=== PATIENT | male | born 1995 | race African-American/Black ===

== ENCOUNTER 2021-01-15 08:52 | Emergency (ER) | payer SELFPAY ==
[2021-01-15 09:02] VITALS: BP 146/86; PULSE 55; RESP 16; TEMP 36.6; O2SAT 100
--- NOTE | 2021-01-15 09:31 | ED.EAR ---
HPI - Ear Problem General Chief complaint: Ear Stated complaint: fb in left ear Time Seen by Provider: 01/15/21 09:20 Source: patient and RN notes reviewed Mode of arrival: ambulatory Limitations: no limitations History of Present Illness HPI Narrative: Patient presents today stating he has a tip of a Q-tip in his left ear for the past hour. Denies pain, but states he is unable to hear from the left ear. Denies blood or discharge from the left ear. MD Complaint: decreased hearing and foreign body Related Data Allergies Allergy/AdvReac Type Severity Reaction Status Date / Time No Known Allergies Allergy Verified 01/15/21 09:01 Review of Systems Review of Systems: Narrative: CONSTITUTIONAL: Denies body aches, fever, chills, or sweats. EYES: Denies visual changes, redness, or discharge. ENT: Denies rhinorrhea, congestion, sore throat, or otalgia.+ Foreign body in left ear, decreased hearing CARDIOVASCULAR: Denies chest pain, palpitations, or edema. RESPIRATORY: Denies cough or dyspnea. GASTROINTESTINAL: Denies abdominal pain, nausea, vomiting, or diarrhea. GENITOURINARY: Denies dysuria or hematuria. SKIN: Denies rash, itching, or wounds. MUSCULOSKELETAL: Denies back pain, joint pain, or myalgia. NEUROLOGIC: Denies headache, numbness, tingling, or weakness. PSYCH: Denies depression or anxiety. PMFSH Comments At time of signature, I have reviewed and agree with nursing past medical, surgical, social and family history unless otherwise noted. Please see nursing chart for further information. There is no relevant family history pertinent to the presenting complaint Exam Narrative: Exam Narrative: GENERAL: Well-appearing, well-nourished, and in no acute distress. HEAD: Normocephalic, atraumatic. EYES: EOMI. No redness or drainage. Conjunctivae normal. ENT: Mucous membranes pink and moist. Right TM normal. Left TM is severely ruptured with small amount of blood in the canal. NECK: Normal AROM. Supple. No lymphadenopathy. CHEST: No respiratory distress. EXTREMITIES: Normal range of motion. No edema. SKIN: Warm, dry, no rash. Capillary refill normal. Normal skin turgor. NEURO: No focal deficits. Alert and oriented x3. Gait steady. PSYCH: Normal affect. No signs of depression or anxiety. Course Vital Signs Vital signs: Vital Signs Temperature 97.8 F 01/15/21 09:02 Pulse Rate 55 L 01/15/21 09:02 Respiratory Rate 16 01/15/21 09:02 Blood Pressure 146/86 H 01/15/21 09:02 Pulse Oximetry 100 01/15/21 09:02 Temperature 97.8 F 01/15/21 09:02 Pulse Rate 55 L 01/15/21 09:02 Respiratory Rate 16 01/15/21 09:02 Blood Pressure 146/86 H 01/15/21 09:02 Pulse Oximetry 100 01/15/21 09:02 Reviewed. Pt has been instructed to follow up with his PCP regarding his elevated blood pressure today. Medical Decision Making Differential Diagnosis Differential Diagnosis: Ruptured TM, foreign body, cerumen impaction Vital Signs Vital Signs: Vital Signs Temperature 97.8 F 01/15/21 09:02 Pulse Rate 55 L 01/15/21 09:02 Respiratory Rate 16 01/15/21 09:02 Blood Pressure 146/86 H 01/15/21 09:02 Pulse Oximetry 100 01/15/21 09:02 Temperature 97.8 F 01/15/21 09:02 Pulse Rate 55 L 01/15/21 09:02 Respiratory Rate 16 01/15/21 09:02 Blood Pressure 146/86 H 01/15/21 09:02 Pulse Oximetry 100 01/15/21 09:02 Critical Care Time Critical Care Time Critical Care Time: No Discharge Plan Discharge Clinical Impression: Eardrum rupture, left Patient Disposition: Home, Self-Care Condition: Stable Instructions: Ruptured Eardrum (ED) Additional Instructions: Your eardrum is severely ruptured. Please wear earplugs in the shower or when you would be swimming. Do not allow any water in your ear. Please take the amoxicillin as prescribed to prevent infection. Please follow-up with an ear nose and throat doctor to ensure that your eardrum is healing appropriately. You have b
== END 2021-01-15 09:45 | disposition home or self-care (01) ==
PROVIDERS: Emergency Provider Nurse Practitioner
DX: H72.92 Unspecified perforation of tympanic membrane, left ear (principal)
CPT/HCPCS: 99213; G0463

== ENCOUNTER 2023-01-06 00:01 | Emergency (ER) | payer SELFPAY ==
[2023-01-06 00:05] VITALS: BP 160/95; PULSE 51; RESP 20; TEMP 36.8; O2SAT 100
--- NOTE | 2023-01-06 03:59 | ED.GENADULT ---
HPI - General Adult General Chief complaint: Eye Problems Stated complaint: eye pain Time Seen by Provider: 01/06/23 03:47 History of Present Illness HPI narrative: Patient is a 27-year-old gentleman who presents the emergency department with chief complaint of left thigh problem. Patient reports that he was on his phone and moved from a bright light to a darker area patient states he noticed that his vision got blurry and reports that this lasted for a few seconds and then he washed his eyes out with water and his vision improved and then he put some eyedrops in his eye and completely resolved his symptoms the patient reports no pain reports that his vision is back to his baseline at this point denies nausea denies vomiting. The patient denies trauma. Related Data Allergies Allergy/AdvReac Type Severity Reaction Status Date / Time No Known Allergies Allergy Verified 01/15/21 09:01 Review of Systems Review of Systems: A 10 system review of systems was completed on the patient and is negative except for what is stated in the HPI. Nursing and ancillary documentation was reviewed. Exam Narrative: GENERAL: Well-appearing, well-nourished, and in no acute distress. HEAD: Normocephalic, atraumatic. EYES: PERRLA and EOMI.. Patient funduscopic exam showed no abnormalities, intraocular pressures were 16 in both eyes Visual acuity was 20/20 in both eyes ENT: Nares clear, no rhinorrhea or epistaxis. Mucous membranes moist. NECK: Supple. CHEST: Clear to auscultation. No respiratory distress. HEART: Regular rate and rhythm. No murmur heard. Normal peripheral pulses. ABDOMEN: Soft, nontender, nondistended, normal active bowel sounds. EXTREMITIES: Normal range of motion. No edema. SKIN: Warm, dry, no rash. NEURO: No focal deficits. Alert and oriented x3. PSYCH: Normal mood and affect. Course Vital Signs Vital signs: Vital Signs Temperature 36.8 C 01/06/23 00:05 Pulse Rate 51 L 01/06/23 00:05 Respiratory Rate 20 01/06/23 00:05 Blood Pressure 160/95 H 01/06/23 00:05 Pulse Oximetry 100 01/06/23 00:05 Oxygen Delivery Room Air 01/06/23 00:05 Temperature 36.8 C 01/06/23 00:05 Pulse Rate 51 L 01/06/23 00:05 Respiratory Rate 20 01/06/23 00:05 Blood Pressure 160/95 H 01/06/23 00:05 Pulse Oximetry 100 01/06/23 00:05 Oxygen Delivery Room Air 01/06/23 00:05 Medical Decision Making MDM Narrative Medical decision making narrative: Differential diagnosis includes acute angle-closure glaucoma, corneal abrasion, conjunctivitis, ocular irritation Patient has normal visual acuity No conjunctival injection, no purulent discharge Funduscopic exam showed no acute abnormality Intraocular pressures were below 20 and equal bilaterally This time the patient is currently asymptomatic. Patient was instructed to follow-up with his primary care provider if he has worsening symptoms or visual changes she should return to the emergency department for reevaluation. Vital Signs Vital Signs: Vital Signs Temperature 36.8 C 01/06/23 00:05 Pulse Rate 51 L 01/06/23 00:05 Respiratory Rate 20 01/06/23 00:05 Blood Pressure 160/95 H 01/06/23 00:05 Pulse Oximetry 100 01/06/23 00:05 Oxygen Delivery Room Air 01/06/23 00:05 Temperature 36.8 C 01/06/23 00:05 Pulse Rate 51 L 01/06/23 00:05 Respiratory Rate 20 01/06/23 00:05 Blood Pressure 160/95 H 01/06/23 00:05 Pulse Oximetry 100 01/06/23 00:05 Oxygen Delivery Room Air 01/06/23 00:05 Discharge Plan Discharge Clinical Impression: Eye irritation Patient Disposition: Home, Self-Care Condition: Stable Instructions: Antibiotic Form, Blurred Vision (ED), Eye Pain (ED) Additional Instructions: If you develop visual changes or pain in the eye please return to the emergency department for reevaluation. Prescriptions: No Action amoxicillin 875 mg tablet 875 mg PO Q12H 7 Days Qty: 14 0RF Follow-up/Refe
[2023-01-06 04:08] VITALS: BP 122/71; PULSE 69; RESP 18; TEMP 36.6; O2SAT 99
== END 2023-01-06 04:09 | disposition home or self-care (01) ==
PROVIDERS: Emergency Provider Emergency Medicine
DX: H57.89 Other specified disorders of eye and adnexa (principal)
CPT/HCPCS: 99281; A4565